=== PATIENT | female | born 1975 | race Caucasian/White ===

== ENCOUNTER 2024-11-16 08:42 | Emergency (ER) | payer OTHER ==
--- NOTE | 2024-11-16 10:25 | ED ---
Abdominal Pain HPI - General Source: patient Mode of arrival: ambulatory Limitations: no limitations <Tripp Burrows - Last Filed: 11/16/24 14:57> <Simeon Baker - Last Filed: 11/16/24 16:22> - General Chief Complaint: Abdominal Pain Stated Complaint: sharp pain, from abdomen to back - History of Present Illness Initial Comments: Patient is a 49-year-old female with scleroderma and GERD presented to the emergency department with sudden onset right upper quadrant abdominal pain that started earlier today at around 8 AM while she was lifting a 10 to 15 pound object. Patient denies having anything like this before. She said the pain started after lifting the object and it has not gone away since time. She describes a sharp stabbing constant pain in the right lower quadrant which radiate toward her back. Patient does report some shortness of breath associated with the pain. Patient denies other symptoms at this time. She denied fever, chills, chest pain, nausea, vomiting, dysuria, constipation, diarrhea. (Tripp Burrows) - Related Data Previous Rx's Medication Instructions Recorded methocarbamoL [Robaxin] 1,000 mg PO QID 10 Days #40 tab 11/16/24 Allergies Allergy/AdvReac Type Severity Reaction Status Date / Time No Known Allergies Allergy Verified 11/16/24 09:11 Review of Systems ROS Other: All systems not noted in ROS Statement are negative. <Tripp Burrows - Last Filed: 11/16/24 14:57> ROS Other: All systems not noted in ROS Statement are negative. <Simeon Baker - Last Filed: 11/16/24 16:22> ROS Statement: Those systems with pertinent positive or pertinent negative responses have been documented in the HPI. Past Medical History Past Medical History: No Reported History History of Any Multi-Drug Resistant Organisms: None Reported Past Surgical History: Back Surgery Additional Past Surgical History / Comment(s): neck fusion Past Psychological History: Anxiety Smoking Status: Former smoker Past Alcohol Use History: Daily Past Drug Use History: None Reported <Tripp Burrows - Last Filed: 11/16/24 14:57> General Exam Limitations: no limitations <Tripp Burrows - Last Filed: 11/16/24 14:57> - General Exam Comments Initial Comments: GENERAL: This is a 49-year-old in no apparent distress at the time of examination. Pleasant and cooperative. HEENT: Head is atraumatic. RESPIRATORY: Clear to auscultation bilaterally. No wheezing, stridor, rhonchi, crackles. CARDIOVASCULAR: Regular rate and rhythm. No systolic or diastolic murmur. No JVD noted. GASTROINTESTINAL: Right upper quadrant slightly tender to palpation with some mild guarding. INTEGUMENTARY: No cyanosis. No jaundice. No rashes noted. No cellulitis noted. EXTREMITIES: 2+ peripheral pulses. No evidence of peripheral edema. No calf tenderness noted. NEUROLOGIC: Cranial nerves II-XII intact. PSYCHIATRIC: Awake, alert, and oriented X 3. Appropriate affect. Intact judgement and insight. (Tripp Burrows) Course Vital Signs 11/16/24 11/16/24 11/16/24 09:08 14:24 15:15 Temperature 97.7 F 97.9 F Pulse Rate 89 88 88 Respiratory 20 18 18 Rate Blood Pressure 111/67 115/72 114/70 O2 Sat by Pulse 99 99 97 Oximetry Medical Decision Making - Lab Data Result diagrams: 11/16/24 12:00 11/16/24 12:00 <Tripp Burrows - Last Filed: 11/16/24 14:57> - Lab Data Result diagrams: 11/16/24 12:00 11/16/24 12:00 <Simeon Baker - Last Filed: 11/16/24 16:22> - Medical Decision Making Was pt. sent in by a medical professional or institution (TUCKER Aguirre, INVESTIGATIONS CONSULTANT, urgent care, hospital, or jail...) When possible be specific @ -No Did you speak to anyone other than the patient for history (EMS, parent, family, police, friend...)? What history was obtained from this source @ -No Did you review nursing and triage notes (agree or disagree)? Why? @ -I reviewed and agree with nursing triage notes Were old charts reviewed (outside hosp., previous admission, EMS record, old EKG, old radiological studies, urgent care reports/EKG's, jail records)? Report findings @ -No old charts reviewed Differential Diagnosis? @ -Biliary colic, muscle strain, pancreatitis, cholelithiasis, acute appendicitis, pneumonia EKG interpreted by me (3pts min.). @ -Not performed X-rays interpreted by me (1pt min.). @ -No acute cardiopulmonary process CT interpreted by me (1pt min.). @ -Not done U/S interpreted by me (1pt. min.). @ -Ultrasound showed mildly dilated common bile duct radiology, consider further evaluation with MRCP/ERCP, minimally complex right renal cyst, simple hepatic cyst. What testing was considered but not performed or refused? (CT, X-rays, U/S, labs)? Why? @ -None What meds were considered but not given or refused? Why? @ -None Did you discuss the management of the patient with other professionals (professionals i.e. DrEdyta, PA, INVESTIGATIONS CONSULTANT, lab, RT, psych nurse, social services designee, circus performer, teacher, administrative services officer, hospice case manager)? Give summary @ -Discussed with attending Dr. Baker Was smoking cessation discussed for >3mins.? @ -No Was critical care preformed (if so, how long)? @ -No Were there social determinants of health that impacted care today? How? (Homelessness, low income, unemployed, alcoholism, drug addiction, transporta tion, low edu. Level, literacy, decrease access to med. care, alf, rehab)? @ -No Was there de-escalation of care discussed even if they declined (Discuss DNR or withdrawal of care, Hospice)? DNR status @ -No What co-morbidities impacted this encounter? (DM, HTN, Smoking, COPD, CAD, Cancer, CVA, ARF, Chemo, Hep., AIDS, mental health diagnosis, sleep apnea, morbid obesity)? @ -GERD, scleroderma Was patient admitted / discharged? Hospital course, mention meds given and route, prescriptions, significant lab abnormalities, going to OR and other pertinent info. @ -Patient presented with right upper quadrant abdominal pain that started earlier today at 8 AM after lifting a 10 pound object at work. She has never had anything like this before. Will order CBC, CMP, amylase, lipase, right upper quadrant ultrasound, chest x-ray, EKG. -EKG was unremarkable. Right upper quadrant ultrasound showed mildly dilated common bile duct. Correlation with bili level is recommended. Consider further evaluation with MRCP/ERCP as clinically indicated. Minimally flex right renal cyst. Simple hepatic cyst. CBC was largely unremarkable. CMP showed some mild hyponatremia. Normal AST, ALT, alkaline phosphatase, total bili. Toradol shot was given in the ED for pain. Patient will be discharged with Robaxin 1000 mg 4 times daily for 10 days and recommended to follow-up with general surgery in 1 to 2 days after discharge. Undiagnosed new problem with uncertain prognosis? @ -No Drug Therapy requiring intensive monitoring for toxicity (Heparin, Nitro, Insulin, Cardizem)? @ -No Were any procedures done? @ -Right upper quadrant ultrasound Diagnosis/symptom? @ -Right upper quadrant abdominal pain suspecting muscle strain as this happened after patient lifted a 10 to 15 pound object. Will like to rule out biliary colic, cholelithiasis, pancreatitis related cause of abdominal pain. Acute, or Chronic, or Acute on Chronic? @ -Acute Uncomplicated (without systemic symptoms) or Complicated (systemic symptoms)? @ -Uncomplicated Side effects of treatment? @ -No Exacerbation, Progression, or Severe Exacerbation? @ -Exacerbation Poses a threat to life or bodily function? How? (Chest pain, USA, PA, pneumonia, PE, COPD, DKA, ARF, appy, cholecystitis, CVA, Diverticulitis, Homicidal, Suicidal, threat to staff... and all critical care pts) @ -No (Tripp Burrows) I personally saw the patient and performed the critical portion of the service. I discussed the patient care with the Dr. Burrows. I directed management, care planning and final disposition of the patient. This includes, but not limited to, review of all lab work, radiological studies, EKG's, consultations, vital signs, and nursing notes. EKG interpreted by me (3pts min.) @As above X-Rays interpreted by me (1 pt min.) @Chest x-ray shows no acute process CT interpreted by me ( 1pt min.) @None U/S interpreted by me (1 pt min.) @Ultrasound shows possible mildly dilated common bile duct Critical care time of 0 minutes excluding separately billable procedures was spent in conjunction with critical care activities provided by the Resident and Attending simultaneously. I was present during no procedures for all critical portions of the procedure and as immediately available to furnish service during the entire procedure. (Simeon Baker) - Lab Data Lab Results 11/16/24 11/16/24 Range/Units 12:00 12:00 WBC 5.3 (3.8-10.6) k/uL RBC 4.75 (3.80-5.40) m/uL Hgb 13.7 (11.4-16.0) gm/dL Hct 43.1 (34.0-46.0) % MCV 90.8 (80.0-100.0) fL MCH 29.0 (25.0-35.0) pg MCHC 31.9 (31.0-37.0) g/dL RDW 12.7 (11.5-15.5) % Plt Count 304 (150-450) k/uL MPV 6.7 Neutrophils % 68 % Lymphocytes % 25 % Monocytes % 4 % Eosinophils % 1 % Basophils % 0 % Neutrophils # 3.6 (1.3-7.7) k/uL Lymphocytes # 1.3 (1.0-4.8) k/uL Monocytes # 0.2 (0-1.0) k/uL Eosinophils # 0.1 (0-0.7) k/uL Basophils # 0.0 (0-0.2) k/uL Sodium 136 L (137-145) mmol/L Potassium 4.5 (3.5-5.1) mmol/L Chloride 100 (98-107) mmol/L Carbon Dioxide 30 (22-30) mmol/L Anion Gap 6 mmol/L BUN 16 (7-17) mg/dL Creatinine 0.69 (0.52-1.04) mg/dL Est GFR (CKD-EPI)AfAm >90 (>60 ml/min/1.73 sqM) Est GFR (CKD-EPI)NonAf >90 (>60 ml/min/1.73 sqM) Glucose 98 (74-99) mg/dL Calcium 9.4 (8.4-10.2) mg/dL Total Bilirubin 0.3 (0.2-1.3) mg/dL AST 23 (14-36) U/L ALT 17 (4-34) U/L Alkaline Phosphatase 98 (38-126) U/L Total Protein 7.5 (6.3-8.2) g/dL Albumin 4.2 (3.5-5.0) g/dL Disposition <Tripp Burrows - Last Filed: 11/16/24 14:57> Is patient prescribed a controlled substance at d/c from ED?: No <Simeon Baker - Last Filed: 11/16/24 16:22> Clinical Impression: Abdominal pain, Dilated bile duct Narrative: Patient's right upper quadrant ultrasound showed mildly dilated common bile duct, minimally complex right renal cyst, simple hepatic cyst. Recommend to follow-up with general surgeon Dr. Blanco 1 to 2 days after discharge. (Ma,Ke) Disposition: HOME SELF-CARE Prescriptions: methocarbamoL [Robaxin] 1,000 mg PO QID 10 Days #40 tab Referrals: Laila Bang MD [Primary Care Provider] - 1-2 days Akosua Blanco MD [STAFF PHYSICIAN] - 1-2 days
--- NOTE | 2024-11-16 11:50 | XR ---
EXAMINATION TYPE: XR chest 2V DATE OF EXAM: 11/16/2024 11:46 AM COMPARISON: None TECHNIQUE: XR chest 2V Frontal and lateral views of the chest. CLINICAL INDICATION:Female, 49 years old with history of abdominal pain; FINDINGS: Lungs/Pleura: There is no evidence of pleural effusion, focal consolidation, or pneumothorax. Pulmonary vascularity: Unremarkable. Heart/mediastinum: Cardiomediastinal silhouette is unremarkable. Musculoskeletal: No acute osseous pathology. Anterior cervical fusion hardware. IMPRESSION: No acute cardiopulmonary disease/process. [facility], , 11/16/2024 11:48 AM
[2024-11-16 12:30] LABS: Basophils % (A) 0 %; Eosinophils # (A) 0.1 k/uL (0-0.7); Eosinophils % (A) 1 %; HCT 43.1 % (34.0-46.0); HGB 13.7 gm/dL (11.4-16.0); Lymphocytes # (A) 1.3 k/uL (1.0-4.8); Lymphocytes % (A) 25 %; MCHC 31.9 g/dL (31.0-37.0); MCV 90.8 fL (80.0-100.0); Mean Platelet Volume 6.7; Monocytes # (A) 0.2 k/uL (0-1.0); Monocytes % (A) 4 %; Neutrophils # (A) 3.6 k/uL (1.3-7.7); Neutrophils % (A) 68 %; Platelet Count 304 k/uL (150-450); RBC 4.75 m/uL (3.80-5.40); RDW 12.7 % (11.5-15.5); WBC 5.3 k/uL (3.8-10.6)
[2024-11-16 12:38] LABS: ALT 17 U/L (4-34); AST 23 U/L (14-36); African American GFR (CKD) >90 (>60 ml/min/1.73 sqM); Albumin 4.2 g/dL (3.5-5.0); Alkaline Phosphatase 98 U/L (38-126); Anion Gap 6 mmol/L; Blood Urea Nitrogen 16 mg/dL (7-17); Calcium 9.4 mg/dL (8.4-10.2); Carbon Dioxide 30 mmol/L (22-30); Chloride 100 mmol/L (98-107); Glucose 98 mg/dL (74-99); Non-African American GFR(CKD) >90 (>60 ml/min/1.73 sqM); Potassium 4.5 mmol/L (3.5-5.1); Sodium 136 mmol/L (137-145); Total Bilirubin 0.3 mg/dL (0.2-1.3); Total Protein 7.5 g/dL (6.3-8.2)
--- NOTE | 2024-11-16 13:36 | US ---
EXAMINATION TYPE: US abdomen limited DATE OF EXAM: 11/16/2024 COMPARISON: NONE CLINICAL INDICATION: Female, 49 years old with history of right upper quadrant abdominal pain; Patien t states she lifted something today and felt a RUQ sharp pain radiating to back. TECHNIQUE: Grayscale and color Doppler imaging of the right upper quadrant was performed. FINDINGS: EXAM MEASUREMENTS: Liver Length: 14.3 cm Gallbladder Wall: 0.1 cm CBD: 0.8 cm Right Kidney: 9.6 x 5.4 x 5.5 cm Pancreas: Head obscured by overlying bowel gas Liver: Left lobe anechoic lesion = 1.2 x 1.2 x 1.2 cm Gallbladder: No stones or wall thickening Evidence for sonographic Holman's sign: neg CBD: Dilated, limited due to gas Right Kidney: Lower mid anechoic lesion with septation = 2.7 x 1.8 x 1.9 cm The visualized portions of the pancreas unremarkable. Simple cyst within the left hepatic lobe measur ing up to 1.2 cm. No gallbladder wall thickening or stones identified. No surrounding fluid. Negative sonographic Holman's sign. Dilated common bile duct measuring up to 8 mm. Right kidney demonstrates no hydronephrosis or shadowing calculi. Minimally complex right renal cyst with septation. IMPRESSION: 1. Mildly dilated common bile duct. Correlation with bili levels is recommended. Consider further isidra luation with MRCP/ERCP as clinically indicated. 2. Minimally complex right renal cyst. 3. Simple hepatic cyst. [facility], , 11/16/2024 1:33 PM
[2024-11-16 14:25] VITALS: PULSE 88; RESP 18; TEMP 97.9
[2024-11-16] MEDS: KETOROLAC 15 MG/ML 1 ML VIAL IM STA (14:39)
[2024-11-16 15:20] VITALS: BP 114/70
== END 2024-11-16 15:15 | disposition home or self-care (01) ==
LOC: EC 08:42 → EDBD 08:42 → EC 15:15
DX: R10.11 Right upper quadrant pain (principal); K83.8 Other specified diseases of biliary tract; Z87.891 Personal history of nicotine dependence
CPT/HCPCS: 36415; 80053; 85025; 71046; 76705; 99284; 96372; J1885